=== PATIENT | male | born 1970 | race Caucasian/White ===

== ENCOUNTER → 2020-08-18 14:26 | Outpatient (BNVA) | payer BC, SELFPAY | PROVIDERS: Family Provider Nurse Practitioner Family; Visit Provider Nurse Practitioner Family | DX: Z20.828 Contact with and (suspected) exposure to other viral communicable diseases (principal); J06.9 Acute upper respiratory infection, unspecified; R43.0 Anosmia | CPT/HCPCS: 87635 ==

== ENCOUNTER 2020-08-20 11:51 | Outpatient (CLI) | payer BC, SELFPAY ==
--- NOTE | 2020-08-20 11:47 | A.OFFVIS_ITS ---
Patient Information Referred by: Aisha Symptom onset date: 08/11/20 COVID 19 common symptoms: positive fever(s), chills, cough, fatigue and body aches COVID 19 other sytmptoms: negative chest pressure, chest pain, pleuritic pain, requiring oxygen, requiring more oxygen, respiratory distress or other concerning symptoms Severity: moderate Treatment prior to arrival: none [facility] COVID test results: Nasal/Oral Coronavirus 2019 PCR Detected H 08/18/20 14:26 08/18/20 Criteria/Plan Inclusion/Exclusion Criteria weight >/= 40kg, + direct test </= 10 days ago and symptom onset </= 10 days ago BMI >/= 35 not requiring hospitalization, not requiring oxygen (if not chronically on oxygen) and no increase oxygen requirement (if chronically on oxygen) Patient education patient/caregiver received/reviewed fact sheet, Emergency Use Authori zation/unapproved drug status discussed with patient/caregiver, alternatives to this treatment discussed with patient/caregiver, risks and benefits of medication reviewed with patient/caregiver, patient/caregiver given opportunity for questions, which were answered and patient/caregiver consents to receiving Monoclonal Antibody Treatment Plan for treatment Meets criteria for Monoclonal Antibody infusion Ordering Monoclonal Antibody infusion for today
[2020-08-20 11:53] VITALS: BMI 49.5
[2020-08-20 12:00] VITALS: BMI 49.5
[2020-08-20 12:17] VITALS: BP 154/99; PULSE 103; RESP 18; TEMP 37.6; O2SAT 97
[2020-08-20 12:37] VITALS: BP 123/88; PULSE 85; RESP 16; TEMP 37.7; O2SAT 95
[2020-08-20 12:55] VITALS: BP 130/88; PULSE 81; RESP 17; TEMP 37.7; O2SAT 96
[2020-08-20 14:31] VITALS: BP 150/94; PULSE 87; RESP 17; TEMP 37.6; O2SAT 95
--- NOTE | 2020-08-25 15:33 | DCPLANNER ---
Addendum entered by Manda Espinoza 09/01/20 15:42: government program manager called to check on patient 10 days after getting the infusion. Patient stated that he was doing good, stated that he was really tired today. Patient stated that he has not been admitted to the hospital. Addendum entered by Manda Espinoza 08/27/20 15:49: government program manager called to check on patient after receiving the BAM infusion. Patient stated that he is a lot better, just feels like he has a cold. Patient is still a little short of breath, but other than that is feeling great. Original Note: government program manager had message that patient received the BAM infusion. government program manager called to check on patient after receiving the infusion. Patient stated that he tolorated the infusion just fine. Before the infusion he stated that he did not have a cough. He did have a headache, chills, low grade fever, he was real tired. That after the infusion he stated that he is getting his taste and smell back, he stated that after the first 24 hours he could not tell a difference, but then after 48 hours he is feeling much better. He stated that he does not have bocy chils, no headaches, and no fever. Patient stated that if he needed a followup appointment that he would make it.
== END 2020-08-20 14:25 | disposition home or self-care (01) ==
LOC: OPS 11:51
PROVIDERS: PCP Nurse Practitioner Family; Visit Provider Nurse Practitioner Family
DX: U07.1 COVID-19 (principal)
CPT/HCPCS: 96365; J7050

== ENCOUNTER 2022-09-08 16:31 | Emergency (ER) | payer BC, SELFPAY ==
[2022-09-08] VITALS (7 sets, daily range): BP systolic 147–157; BP diastolic 97–105; PULSE 68–77; RESP 16–24; TEMP 36.8; O2SAT 90–97
--- NOTE | 2022-09-08 16:45 | ECG_ITS ---
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 Measurements Intervals [place] Rate: 78 P: 42 [place]: 148 QRS: 46 QRSD: 101 T: 65 QT: 356 QTc: 406 Interpretive Statements SINUS RHYTHM No previous ECG available for comparison Electronically Signed On 09-08-2022 17:28:19 GERIATRIC NURSING ASSISTANT by Uli Kim M.D. [id number]
--- NOTE | 2022-09-08 16:53 | ED_ITS ---
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 He reports over the past few weeks noticing increased swelling left greater than right which has been evaluated by PCP. He had a negative ultrasound however has been more fatigued and short of breath. Additionally he notes some chest pressure in the middle of his chest associated with shortness of breath and lightheadedness earlier today. Density symptoms is moderate. Course has persisted. No other specific changes in health, exacerbating, or alleviating factors identified. Pertinent past history: other Onset (ago): week(s) Timing of current episode: increasing Pain location: substernal and other Severity: moderate Quality: tightness, heaviness and sharp Relieving factors: nothing Exacerbating factors: movement Associated symptoms: Reports leg edema Review of Systems General: Reports: 10 or more systems reviewed and unremarkable except in HPI and below PFSH ED PFSH: Medical History Essential hypertension History of blood clots Family History Denies family history of Anesthesia complication Bleeding disorder Social History Smoking and tobacco status: never smoked Alcohol intake: never Physical Exam Const: COMMON NORMALS: alert GENERAL APPEARANCE: cooperative and well developed HENMT: COMMON NORMALS: normocephalic and atraumatic HEAD & SCALP: normocephalic and atraumatic Eye: COMMON NORMALS: conjunctivae normal CONJUNCTIVA: Yes conjunctivae normal SCLERA: sclerae normal Neck/C-Spine: COMMON NORMALS: supple GENERAL: Yes trachea midline Resp: COMMON NORMALS: clear to auscultation bilaterally EFFORT & INSPECTION : Yes able to speak in complete sentences AUSCULTATION: clear to auscultation bilaterally Cardio: COMMON NORMALS: regular rate and regular rhythm RATE: regular rate RHYTHM: regular rhythm GI: COMMON NORMALS: Soft to palpation PALPATION: Yes Soft to palpation and No Tenderness to palpation present (GI) Extremity: GENERAL: Yes normal exam except as noted and Yes edema Neuro: COMMON NORMALS: moves all extremities SENSORIUM/ORIENTATION: Yes alert and No Orientation impaired Psych: COMMON NORMALS: mental status grossly normal and Normal thought process present THOUGHT PROCESS: Normal thought process present Course Vital Signs: Vital signs: Vital Signs Temperature 98.2 F 09/08/22 16:40 Pulse Rate 76 09/08/22 21:19 Respiratory Rate 20 H 09/08/22 21:19 Blood Pressure 151/104 09/08/22 20:48 Pulse Oximetry 95 09/08/22 21:19 Oxygen Delivery Me thod 09/08/22 19:26 MDM - Chest Pain Medical Decision Making 52-year-old gentleman presenting to the emergency department for leg swelling and chest discomfort. Patient does have history of DVT however no leg tenderness palpation and mild trace edema appears symmetric without overlying skin changes. Exam as above. Patient is nontoxic in appearance. EKG notable for sinus rhythm, normal axis and intervals, no STEMI. Labs notable for minimal leukocytosis, normal hemoglobin. Metabolic panel without acute derangement. Negative range 2-hour delta troponin. Given clinical history of reported DVT as well as description of symptoms D-dimer is appropriate and was elevated. Chest x-ray with no lobar consolidation or pneumothorax. CTA negative for pulmonary embolism. Most likely etiology of patient's symptoms is unspecified chest pain. He is low risk by heart score and can be referred for outpatient management. Plan to have further outpatient evaluation and follow-up. The results of ED evaluation were discussed with the patient including prescriptions and/or symptomatic cares (if applicable) including appropriate and responsible use, followup plan, and return precautions. The patient verbalized understanding and felt safe for discharge. Medical Records I reviewed the patient's medical records. Lab Data I reviewed the patient's lab results. 09/08/22 17:15 09/08/22 17:15 Radiology Impressions Chest X-Ray 09/08/22 17:03 IMPRESSION: No acute findings. Chest CTA 09/08/22 18:54 IMPRESSION: Negative for pulmonary embolism. Minor curvilinear atelectasis or scarring at the lingula. Otherwise, no acute findings. Laboratory Results WBC 11.1 10^3/uL (4.0-10.0) H 09/08/22 17:15 RBC 5.14 10^6/uL (4.1-5.3) 09/08/22 17:15 Hgb 15.1 g/dL (11.7-16.6) 09/08/22 17:15 Hct 46.1 % (42.0-52.0) 09/08/22 17:15 MCV 89.7 fl (80-94) 09/08/22 17:15 MCH 29.4 pg (28.0-34.0) 09/08/22 17:15 MCHC 32.8 g/dL (30.0-36.0) 09/08/22 17:15 RDW 13.5 % (12.1-15.1) 09/08/22 17:15 Plt Count 264 10^3/cmm (130-400) 09/08/22 17:15 MPV 10.0 fL (7.4-10.4) 09/08/22 17:15 Neut % (Auto) 59.6 % 09/08/22 17:15 Lymph % (Auto) 26.3 % 09/08/22 17:15 [place] % (Auto) 10.8 % 09/08/22 17:15 Eos % (Auto) 2.4 % 09/08/22 17:15 Baso % (Auto) 0.4 % 09/08/22 17:15 Neut # (Auto) 6.59 10^3/uL (1.8-7.7) 09/08/22 17:15 Lymph # (Auto) 2.9 10^3/uL (0.8-4.8) 09/08/22 17:15 [place] # (Auto) 1.2 10^3/uL (0.2-0.9) H 09/08/22 17:15 Eos # (Auto) 0.3 10^3/uL (0.0-0.8) 09/08/22 17:15 Baso # (Auto) 0.0 10^3/uL (0.0-0.1) 09/08/22 17:15 Nucleated RBC % (auto) 0 % 09/08/22 17:15 Nucleated RBCs # 0.0 /100WBC 09/08/22 17:15 D-Dimer 0.60 ug/mIFEU (0-0.59) H 09/08/22 17:15 Sodium 137 mmol/L (136-145) 09/08/22 17:15 Potassium 4.1 mmol/L (3.5-5.1) 09/08/22 17:15 Chloride 102 mmol/L (98-107) 09/08/22 17:15 Carbon Dioxide 28 mmol/L (22-29) 09/08/22 17:15 Anion Gap 11.1 (5-19) 09/08/22 17:15 BUN 16 mg/dL (6-20) 09/08/22 17:15 Creatinine 1.1 mg/dL (0.7-1.2) 09/08/22 17:15 GFR Calculation 70.9 mL/min (90-130) L 09/08/22 17:15 Glucose 112 mg/dL (65-115) 09/08/22 17:15 Calculated Osmolality 286 mOsm/kg (285-295) 09/08/22 17:15 Calcium 9.5 mg/dL (8.5-10.5) 09/08/22 17:15 Total Bilirubin 0.2 mg/dL (0.15-1.2) 09/08/22 17:15 AST 16 U/L (0-40) 09/08/22 17:15 ALT 34 U/L (0-41) 09/08/22 17:15 Alkaline Phosphatase 100 U/L (40-130) 09/08/22 17:15 Troponin T Baseline 8 ng/L (0-15) 09/08/22 17:15 Troponin T 120 Minute 7.84 ng/L (0-15) 09/08/22 18:47 Delta Troponin T -0.16 ABS# (0-10) L 09/08/22 18:47 NT-Pro-B Natriuret Pep 5 pg/mL (0-125) 09/08/22 17:15 Total Protein 7.0 g/dL (6.6-8.7) 09/08/22 17:15 Albumin 3.9 g/dL (3.5-5.2) 09/08/22 17:15 Globulin 3.1 g/dL (1.3-4.6) 09/08/22 17:15 Lipase 20 U/L (13-60) 09/08/22 17:15 Discharge Plan Discharge Patient Disposition: Home Clinical Impression: Chest pain Condition: Stable Prescriptions: No Action lisinopril 10 mg tablet 10 mg PO DAILY Discharge Orders: Discharge ED (Routine); Ordered 09/08/22 Ordered By: Warren Lau Referrals: Tierra Mccauley APRN [Primary Care Provider] - Discharge Diet: Usual diet Discharge Activity: Increase activity as tolerated Patient Instructions: Chest Pain (ED), Leg Edema (ED) Activity Restrictions/Additional Instructions: Thank you for visiting the emergency department. You were seen and evaluated for chest pain and associated symptoms. The exact cause of your symptoms is unclear however as discussed based on risk stratification does not appear to need hospitalization at this time. Please continue outpatient evaluation and follow-up with your primary care monae beck. I will message case management for outpatient cardiac stress testing. Return to the emergency department for worsening or uncontrolled symptoms or anything else that you are concerned about and feel needs emergency department evaluation Coding Level of Care Code ED Zoning Administrator for Berto Herron
--- NOTE | 2022-09-08 17:03 | XRR_ITS ---
PROCEDURE INFORMATION: Exam: XR Chest Exam date and time: 09/08/2022 5:15 PM Age: 52 years old Clinical indication: Pain; Left-sided; Additional info: Cp TECHNIQUE: Imaging protocol: Radiologic exam of the chest. Views: 1 view. COMPARISON: CR XR abdomen min 2V [id number] 01/01/2018 7:43 AM FINDINGS: Lungs: Unremarkable. No consolidation. Pleural spaces: Unremarkable. No pleural effusion. No pneumothorax. Heart/Mediastinum: Unremarkable. No cardiomegaly. Bones/joints: Unremarkable. XR/XR chest 1V portable [id number] IMPRESSION: No acute findings.
[2022-09-08] MEDS: aspirin 81 mg Chew Tablet 324 MG PO (17:28)
--- NOTE | 2022-09-08 17:30 | PC.NURSE ---
Patient dropped one tablet.
[2022-09-08 17:36] LABS: Basophils % 0.4 %; Eosinophils # 0.3 10^3/uL (0.0-0.8); Eosinophils % 2.4 %; Hematocrit 46.1 % (42.0-52.0); Hemoglobin 15.1 g/dL (11.7-16.6); Lymphocytes # 2.9 10^3/uL (0.8-4.8); Lymphocytes % 26.3 %; Mean Corpuscular HGB Conc 32.8 g/dL (30.0-36.0); Mean Corpuscular Hemoglobin 29.4 pg (28.0-34.0); Mean Corpuscular Volume 89.7 fl (80-94); Monocytes # 1.2 10^3/uL (0.2-0.9); Monocytes % 10.8 %; Neutrophils # 6.59 10^3/uL (1.8-7.7); Neutrophils % 59.6 %; Nucleated Red Blood Cells % 0 %; Platelet Count 264 10^3/cmm (130-400); Red Blood Count 5.14 10^6/uL (4.1-5.3); Red Cell Distribution Width 13.5 % (12.1-15.1); White Blood Count 11.1 10^3/uL (4.0-10.0)
[2022-09-08] MEDS: aspirin 81 mg Chew Tablet PO (17:36)
[2022-09-08 18:10] LABS: Troponin(5th) Baseline 8 ng/L (0-15)
[2022-09-08 18:19] LABS: Alanine Aminotransferase 34 U/L (0-41); Albumin Level 3.9 g/dL (3.5-5.2); Alkaline Phosphatase 100 U/L (40-130); Anion Gap 11.1 (5-19); Aspartate Amino Transferase 16 U/L (0-40); Blood Urea Nitrogen 16 mg/dL (6-20); Calcium 9.5 mg/dL (8.5-10.5); Carbon Dioxide 28 mmol/L (22-29); Chloride 102 mmol/L (98-107); Globulin 3.1 g/dL (1.3-4.6); Glomerular Filtration Rate 70.9 mL/min (90-130); Glucose 112 mg/dL (65-115); Lipase 20 U/L (13-60); NT Pro B Type Natriuretic Pept 5 pg/mL (0-125); Osmolality Calculated 286 mOsm/kg (285-295); Potassium 4.1 mmol/L (3.5-5.1); Sodium 137 mmol/L (136-145); Total Bilirubin 0.2 mg/dL (0.15-1.2)
--- NOTE | 2022-09-08 18:54 | CTR_ITS ---
PROCEDURE INFORMATION: Exam: CTA Chest With Contrast Exam date and time: 09/08/2022 8:18 PM Age: 52 years old Clinical indication: Pain; Chest pressure; Additional info: Cp, SOB, HX dvt, elevated ddimer TECHNIQUE: Imaging protocol: Computed tomographic angiography of the chest with contrast. 3D rendering (Not supervised by radiologist): MIP and/or 3D reconstructed images were created by the technologist. Radiation optimization: All CT scans at this facility use at least one of these dose optimization techniques: automated exposure control; mA and/or kV adjustment per patient size (includes targeted exams where dose is matched to clinical indication); or iterative reconstruction. Contrast material: OMNIPAQUE 350; Contrast volume: 95 ml; Contrast route: INTRAVENOUS (IV); COMPARISON: CR (CHEST, ) 09/08/2022 5:15 PM RADIATION DOSE METRICS: Total DLP (mGy-cm): 2565.94 FINDINGS: Pulmonary arteries: Normal. No pulmonary emboli. Aorta: No aortic aneurysm. No aortic dissection. Lungs: Minor curvilinear atelectasis or scarring at the lingula. Partially calcified granuloma noted in the left lower lobe. No consolidation. No masses. Pleural spaces: No pneumothorax. No pleural effusion. Heart: No cardiomegaly. No pericardial effusion. Lymph nodes: No enlarged lymph nodes. Bones/joints: No acute fracture. Soft tissues: Unremarkable. CT/CT angio chest PE protcl [id number] IMPRESSION: Negative for pulmonary embolism. Minor curvilinear atelectasis or scarring at the lingula. Otherwise, no acute findings.
--- NOTE | 2022-09-08 19:01 | ECG_ITS ---
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 Measurements Intervals [place] Rate: 72 P: 50 [place]: 151 QRS: 48 QRSD: 99 T: 60 QT: 369 QTc: 404 Interpretive Statements SINUS RHYTHM WITH OCCASIONAL VENTRICULAR PREMATURE COMPLEXES Compared to ECG 09/08/2022 16:45:06 Ventricular premature complex(es) now present Electronically Signed On 09-09-2022 14:43:28 COMPLIANCE VICE PRESIDENT by Uli Kim M.D. [id number]
--- NOTE | 2022-09-08 19:29 | PC.NURSE ---
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 NAD noted. will continue to monitor.
--- NOTE | 2022-09-08 19:58 | PC.NURSE ---
1950 - patient transported to CT via wheelchair with motion study technician.
[2022-09-08 20:04] LABS: Troponin 5 2HR 7.84 ng/L (0-15)
[2022-09-08] MEDS: iohexol 350 mg/mL 500 mL Btl (per mL) IV (20:39)
--- NOTE | 2022-09-08 20:49 | PC.NURSE ---
patient sitting in chair due to being uncomfortable in stretcher. NAD distress noted.
[2022-09-08 21:18] LABS: Troponin 5 2HR Delta -0.16 ABS# (0-10)
== END 2022-09-08 21:20 | disposition home or self-care (01) ==
PROVIDERS: Emergency Provider Emergency Medicine; PCP Nurse Practitioner Family
DX: R07.9 Chest pain, unspecified (principal); I10 Essential (primary) hypertension
CPT/HCPCS: 71045; 71275; 80053; 83690; 83880; 84484; 85025; 85378; 93005; 99285; Q9967

== ENCOUNTER 2024-07-22 13:39 | Inpatient (IN) | payer BC, SELFPAY ==
[2024-07-22] VITALS (27 sets, daily range): BP systolic 104–138; BP diastolic 70–104; PULSE 59–102; RESP 9–28; TEMP 36.4–36.6; O2SAT 91–99; BMI 44.4
--- NOTE | 2024-07-22 13:42 | XRR_ITS ---
PROCEDURE INFORMATION: Exam: XR Chest Exam date and time: 07/22/2024 2:07 PM Age: 54 years old Clinical indication: Pain; Angina pectoris; Additional info: Cp TECHNIQUE: Imaging protocol: Radiologic exam of the chest. Views: 1 view. COMPARISON: CT angio chest PE protcl [id number] 09/08/2022 8:18 PM FINDINGS: Lungs: Unremarkable. No consolidation. Pleural spaces: Unremarkable. No pleural effusion. No pneumothorax. Heart/Mediastinum: Unremarkable. No cardiomegaly. Bones/joints: Unremarkable. XR/XR chest 1V portable [id number] IMPRESSION: No acute findings.
--- NOTE | 2024-07-22 13:55 | ECG_ITS ---
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 Measurements Intervals [place] Rate: 55 P: 44 [place]: 175 QRS: 31 QRSD: 95 T: 65 QT: 384 QTc: 370 Interpretive Statements SINUS BRADYCARDIA SEPTAL MYOCARDIAL INFARCTION , OF INDETERMINATE AGE [40+ ms Q WAVE IN V1/V2] Compared to ECG 09/08/2022 19:01:40 Myocardial infarct finding now present Sinus rhythm no longer present Ventricular premature complex(es) no longer present Electronically Signed On 07-23-2024 21:38:07 WORKS MANAGER by Uli Kim M.D. [id number]
--- NOTE | 2024-07-22 14:01 | ED_ITS ---
HPI - Chest Pain 2 General: Chief Complaint: Chest Pain Stated Complaint: CP Time Seen by Provider: 07/22/24 13:50 Source: patient Mode of arrival: ambulatory Limitations: no limitations History of Present Illness: 54-year-old male states he had had a hea rt attack little over a week ago did have stents placed he states it [place] states that he had eaten this morning started having some epigastric pain and states that he has been burping as well he states that since belching his pains improving he denies any fever denies any dyspnea denies any vomiting or diarrhea Associated symptoms: Reports abdominal pain; Deny dyspnea, fever(s), nausea or vomiting Related Data Home Medications Medication Instructions Recorded Confirmed lisinopril 10 mg tablet 10 mg PO DAILY 08/18/20 07/22/24 aspirin 81 mg tablet,delayed 81 mg PO DAILY 07/22/24 07/22/24 release bupropion HCl 150 mg 24 hr tablet, 150 mg PO DAILY 07/22/24 07/22/24 extended release buspirone 5 mg tablet 5 mg PO BID 07/22/24 07/22/24 carvedilol 6.25 mg tablet 6.25 mg PO BID 07/22/24 07/22/24 clopidogrel 75 mg tablet 75 mg PO DAILY 07/22/24 07/22/24 famotidine 20 mg tablet 20 mg PO BID 07/22/24 07/22/24 furosemide 20 mg tablet 20 mg PO DAILY 07/22/24 07/22/24 losartan 50 mg tablet 50 mg PO DAILY 07/22/24 07/22/24 meloxicam 15 mg tablet 15 mg PO DAILY 07/22/24 07/22/24 rosuvastatin 40 mg tablet 70 mg PO DAILY 07/22/24 07/22/24 semaglutide 0.25 mg or 0.5 mg (2 See Rx Instructions .Route .COMPLEX 07/22/24 07/22/24 mg/1.5 mL) subcutaneous pen injector sertraline 50 mg tablet 50 mg PO DAILY 07/22/24 07/22/24 trazodone 50 mg tablet 50 mg PO BEDTIME PRN Insomnia 07/22/24 07/22/24 Allergies Allergy/AdvReac Type Severity Reaction Status Date / Time No Known Allergies Allergy Verified 09/08/22 16:48 Review of Systems 2 Const: Denies: fever(s), chills, body aches or change in appetite ENMT: Denies: throat pain or dental pain Card: Reports: chest pain Resp: Denies: dyspnea GI: Reports: abdominal pain; Denies: nausea, vomiting or diarrhea Musc: Denies: neck pain or back pain Skin/Breast: Denies: rash Neuro: Denies: headache(s) PFSH ED 2 PFSH: Medical History History of blood clots Essential hypertension Family History Denies family history of Anesthesia complication Bleeding disorder Social History Smoking and tobacco/nicotine status: never used tobacco/nicotine Alcohol intake: never Physical Exam 2 Const: COMMON NORMALS: no acute distress, patient oriented x3 and healthy appearing HENMT: COMMON NORMALS: normocephalic and atraumatic HEAD & SCALP: n ormocephalic and atraumatic Eye: COMMON NORMALS: conjunctivae normal CONJUNCTIVA: Yes conjunctivae normal Neck/C-Spine: COMMON NORMALS: full ROM and supple Chest: COMMONS NORMALS: normal inspection of the chest Resp: COMMON NORMALS: normal respiratory effort, No retractions, No use of accessory muscles and clear to auscultation bilaterally AUSCULTATION: clear to auscultation bilaterally Cardio: COMMON NORMALS: regular rhythm and No murmurs present (Cardio) R ATE: bradycardic RHYTHM: regular rhythm GI: COMMON NORMALS: Normal to inspection, nondistended, normoactive bowel sounds present, Soft to palpation, non-tender and no masses PALPATION: Yes Soft to palpation Extremity: COMMON NORMALS: normal to inspection and full ROM Neuro: COMMON NORMALS: patient oriented x3, moves all extremities and no focal motor deficits Psych: COMMON NORMALS: mental status grossly normal, Normal thought process present and cooperative THOUGHT PROCESS: Normal thought process present Skin: COMMON NORMALS: no rashes or lesions noted and no wounds GENERAL SKIN EXAM: no rashes or lesions noted Course 2 Reevaluation(s): Reevaluation #1: Patient started having chest pain nurse alerted me that he stated his pain was now 5 out of 10 due to repeat EKG that now is showing ST elevation I spoke to putty glazer STEMI alert was called off second EKG Time: 15:36 Vital Signs: Vital signs: Vital Signs Temperature 97.6 F 07/22/24 13:58 Pulse Rate 67 07/22/24 16:02 Respiratory Rate 14 07/22/24 16:02 Blood Pressure 128/78 07/22/24 16:02 Pulse Oximetry 98 07/22/24 16:02 Oxygen Delivery Me thod Room Air 07/22/24 16:02 MDM - Chest Pain Medical Decision Making Patient presents here with chest pain second EKG showed ST elevation I spoke to [facility]ty [facility]azer who is taking patient to the [facility] at this time initial EKG showed no ST elevation he said no shortness of breath here or headache. Medical Records I reviewed the patient's medical records. Lab Data I reviewed the patient's lab results. 07/22/24 12:15 07/22/24 14:05 Radiology Impressions Chest X-Ray 07/22/24 13:42 IMPRESSION: No acute findings. Laboratory Results WBC 12.97 10^3/uL (3.29-11.43) H 07/22/24 12:15 RBC 5.26 10^6/uL (3.85-5.65) 07/22/24 12:15 Hgb 16.10 g/dL (11.27-16.99) 07/22/24 12:15 Hct 48.5 % (37-53) 07/22/24 12:15 MCV 92.2 fl (82-101) 07/22/24 12:15 MCH 30.6 pg (27-33) 07/22/24 12:15 MCHC 33.2 g/dL (30-55) 07/22/24 12:15 RDW 13.1 % (12.1-15.1) 07/22/24 12:15 Plt Count 290 10^3/cmm (157-399) 07/22/24 12:15 MPV 9.9 fL (7.4-10.4) 07/22/24 12:15 Neut % (Auto) 64.3 % 07/22/24 12:15 Lymph % (Auto) 25.5 % 07/22/24 12:15 [place] % (Auto) 7.4 % 07/22/24 12:15 Eos % (Auto) 1.8 % 07/22/24 12:15 Baso % (Auto) 0.5 % 07/22/24 12:15 Neut # (Auto) 8.34 10^3/uL (1.8-7.7) H 07/22/24 12:15 Lymph # (Auto) 3.3 10^3/uL (0.8-4.8) 07/22/24 12:15 [place] # (Auto) 1.0 10^3/uL (0.2-0.9) H 07/22/24 12:15 Eos # (Auto) 0.2 10^3/uL (0.0-0.8) 07/22/24 12:15 Baso # (Auto) 0.1 10^3/uL (0.0-0.1) 07/22/24 12:15 Nucleated RBC % (auto) 0 % 07/22/24 12:15 Nucleated RBCs # 0.0 /100WBC 07/22/24 12:15 PT 12.90 SECONDS (12.1-14.9) 07/22/24 14:05 INR 0.95 (0.8-1.2) 07/22/24 14:05 Sodium 140 mmol/L (136-145) 07/22/24 14:05 Potassium 4.8 mmol/L (3.5-5.1) 07/22/24 14:05 Chloride 101 mmol/L (98-107) 07/22/24 14:05 Carbon Dioxide 26 mmol/L (22-29) 07/22/24 14:05 Anion Gap 17.8 (5-19) 07/22/24 14:05 BUN 17 mg/dL (6-20) 07/22/24 14:05 Creatinine 0.9 mg/dL (0.7-1.2) 07/22/24 14:05 GFR Calculation 88.6 mL/min (90-130) L 07/22/24 14:05 Glucose 137 mg/dL (65-115) H 07/22/24 14:05 Calculated Osmolality 294 mOsm/kg (285-295) 07/22/24 14:05 Calcium 9.7 mg/dL (8.5-10.5) 07/22/24 14:05 Total Bilirubin 0.5 mg/dL (0.15-1.2) 07/22/24 14:05 AST 14 U/L (0-40) 07/22/24 14:05 ALT 34 U/L (0-41) 07/22/24 14:05 Alkaline Phosphatase 102 U/L (40-130) 07/22/24 14:05 Troponin T Baseline 9 ng/L (0-15) 07/22/24 14:05 Total Protein 7.1 g/dL (6.6-8.7) 07/22/24 14:05 Albumin 4.7 g/dL (3.5-5.2) 07/22/24 14:05 Globulin 2.4 g/dL (1.3-4.6) 07/22/24 14:05 Lipase 27 U/L (13-60) 07/22/24 14:05 All radiology interpretation(s) finalized by discharge EKG Data EKG 1: I personally reviewed and interpreted this EKG as follows: EKG interpretation date: 07/22/24 EKG interpretation time: 13:55 Interpretation: sinus devin hr [address] elevation qrs 95 qtc 374 EKG 2: I personally reviewed and interpreted this EKG as follows: EKG interpretation date: 07/22/24 EKG interpretation time: 15:36 Interpretation: sinus devin st elevation v1 with reciprocal depression Critical Care Time 2 Critical Care Time: Critical Care Time: Yes Total Critical Care Time: 45 Attestation: The high probability of a clinically significant, sudden or life threatening deterioration of the patient's cv system(s) required my full and direct attention, intervention and personal management. The critical care time is as shown. This time is in addition to time spent performing any reported procedures but includes the following: [x] Data and vital sign review and interpretation [x] Patient assessment, examination and intervention [x] Documentation [x] Medication orders and management Discharge Plan Discharge Patient Disposition: Admitted As Inpatient Clinical Impression: ST elevation AK (STEMI) Condition: Stable Prescriptions: No Action lisinopril 10 mg tablet 10 mg PO DAILY losartan 50 mg tablet 50 mg PO DAILY buspirone 5 mg tablet 5 mg PO BID carvedilol 6.25 mg tablet 6.25 mg PO BID trazodone 50 mg tablet 50 mg PO BEDTIME PRN (Reason: Insomnia) meloxicam 15 mg tablet 15 mg PO DAILY clopidogrel 75 mg tablet 75 mg PO DAILY aspirin 81 mg tablet,delayed release (DR/EC) 81 mg PO DAILY famotidine 20 mg tablet 20 mg PO BID sertraline 50 mg tablet 50 mg PO DAILY rosuvastatin 40 mg tablet 70 mg PO DAILY bupropion HCl 150 mg tablet extended release 24 hr 150 mg PO DAILY furosemide 20 mg tablet 20 mg PO DAILY semaglutide 0.25 mg or 0.5 mg(2 mg/1.5 mL) Pen Injector See Rx Instructions .ROUTE .COMPLEX Rx Instructions: Inject 96 units on syringe by subcutaneous injection every 7 days. 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
[2024-07-22] MEDS: lidocaine 2% viscous 15 ML, aluminum-mag hydrox-simethicon 30 ML, sucralfate oral liq 1 GM PO ×2 (14:19→23:36)
[2024-07-22 14:34] LABS: Basophils # 0.1 10^3/uL (0.0-0.1); Basophils % 0.5 %; Eosinophils # 0.2 10^3/uL (0.0-0.8); Eosinophils % 1.8 %; Hematocrit 48.5 % (37-53); Lymphocytes # 3.3 10^3/uL (0.8-4.8); Lymphocytes % 25.5 %; Mean Corpuscular HGB Conc 33.2 g/dL (30-55); Mean Corpuscular Hemoglobin 30.6 pg (27-33); Mean Corpuscular Volume 92.2 fl (82-101); Mean Platelet Volume 9.9 fL (7.4-10.4); Monocytes % 7.4 %; Neutrophils # 8.34 10^3/uL (1.8-7.7); Neutrophils % 64.3 %; Nucleated Red Blood Cells % 0 %; Platelet Count 290 10^3/cmm (157-399); Red Blood Count 5.26 10^6/uL (3.85-5.65); Red Cell Distribution Width 13.1 % (12.1-15.1); White Blood Count 12.97 10^3/uL (3.29-11.43)
[2024-07-22 14:50] LABS: INR 0.95 (0.8-1.2)
[2024-07-22 14:55] LABS: Alanine Aminotransferase 34 U/L (0-41); Albumin Level 4.7 g/dL (3.5-5.2); Alkaline Phosphatase 102 U/L (40-130); Anion Gap 17.8 (5-19); Aspartate Amino Transferase 14 U/L (0-40); Blood Urea Nitrogen 17 mg/dL (6-20); Calcium 9.7 mg/dL (8.5-10.5); Carbon Dioxide 26 mmol/L (22-29); Chloride 101 mmol/L (98-107); Globulin 2.4 g/dL (1.3-4.6); Glomerular Filtration Rate 88.6 mL/min (90-130); Glucose 137 mg/dL (65-115); Lipase 27 U/L (13-60); Osmolality Calculated 294 mOsm/kg (285-295); Potassium 4.8 mmol/L (3.5-5.1); Sodium 140 mmol/L (136-145); Total Bilirubin 0.5 mg/dL (0.15-1.2); Total Protein 7.1 g/dL (6.6-8.7)
--- NOTE | 2024-07-22 14:55 | PC.PHAR ---
Pt has 3 new orders not started yet. Blood thinners on hold due to brain bleed. Brilinta 90mg and Metformin 500 were dc'd
[2024-07-22 14:56] LABS: Troponin(5th) Baseline 9 ng/L (0-15)
[2024-07-22] MEDS: ondansetron 2 mg/ML SDV 2 mL 4 MG IVP (15:22)
--- NOTE | 2024-07-22 15:36 | ECG_ITS ---
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 [email or web address]
[2024-07-22] MEDS: HYDROmorphone 1 mg/mL INJ 1 mL 0.5 MG IVP (15:43)
[2024-07-22] MEDS: aspirin 81 mg Chew Tablet 324 MG PO (15:43)
[2024-07-22] MEDS: clopidogrel 300 mg Tablet 600 MG PO (15:47)
[2024-07-22] MEDS: heparin 5,000 unit/mL INJ 1 mL 4000 UNIT IVP (15:48)
--- NOTE | 2024-07-22 15:49 | XACV_ITS ---
Exam Room: [facility] Ht: 183 cm Wt: 143 kg BSA: 2.76 m2 Gender: Male : 1970 Exam Priority: Routine Indication(s): - Acute anterior wall ME Procedure(s): Procedure Description: Diagnostic procedure Procedure Description: PCI procedure Procedure Description: Coronary IVUS Procedure Description: Drug Eluting Coronary Stent Procedure Description: PTCA Procedure Description: Coronary Thrombectomy Procedure Description: Miscellaneous Procedure Description: ACT Procedure Description: Coronary Angiography Diagnostic Cath Status: Emergency Diagnostic Findings * Ken Davis is a 54 year old male who has a complicated history with a recent intervention to LAD 2 weeks ago at an outside hospital please note that this is as per patient no record available to me, according to the patient course was complicated with intracranial bleed post left heart cath after 24 hours patient has excruciating headache thought to be sinus in origin, patient was discharged home when next day he started having double vision decided to come to the ER, CT scan confirmed intracranial bleed again no record available to me. He was transferred to neurosurgery care at [facility], in few days patient after close observation was discharged home advised to continue holding antiplatelet for next 2 more weeks, this morning patient started having chest pain off and on basis when it became more consistent he decided to come to the ER. Initial EKG was not suggestive of significant ST changes however the second EKG with chest pain was was consistent with anteroinferior ST depression suggestive of ischemia/injury. STEMI pager was activated because of ongoing chest pain and dynamic EKG changes. Patient was taken to the [facility], given history of recent intracranial bleed we kept ACT in between 250 and 300 mostly. He was noted to have 100% occluded mid left main. After somewhat difficulty we were able to cross into LAD, he was noted to have thrombotically occluded left side system including nondominant circumflex and large LAD/diagonal branch. Multiple balloon angioplasty followed by thrombectomy using Pronto and penumbra catheter was performed. IVUS confirmed high clot burden in proximal to distal segment at the same time there appeared to be ostial to proximal LAD small size perhaps underexpanded stent. It was treated with balloon angioplasty, despite of that patient vessel kept on occluding with thrombus burden, use of penumbra/balloon angioplasty followed by drug-eluting stent was performed in ostial to proximal LAD which finally restore the flow, it was treated with 3.5 x 15 mm drug-eluting stent postdilated with 4.0 x 12 mm noncompliant balloon at high inflation. Cardene was given intracoronary along with nitroglycerin, it finally restore the flow. Good angiographic result with LOYD-3 flow was noted in the LAD, we then tried to find circumflex which appeared to be small caliber nondominant vessel. RCA was a large-caliber dominant vessel without significant stenosis. Left ventricular end-diastolic pressure was 32 mmHg ejection fraction was 45%. Since patient has high thrombus burden we decided to treat him with low-dose IV heparin as cannot give 2B3A inhibitor. At this point patient would like to be transferred to [place] where neurosurgery can observe him for any head bleed since he had a bad experience after the previous cath because of intracranial hemorrhage. We have requested bed at [facility] and awaiting response. Currently patient appeared to be stable.Left heart catheterization#1 Left main is thrombotically occluded in the distal segment #2 LAD noted to have thrombotically occluded ostial segment with proximal stent without any flow #3 LCx small caliber nondominant vessel which is occluded #4 RCA is large caliber size and vessel which is dominant wraps around the apex does not have a significant stenosis or thrombus IVUS was performed: It was suggestive of small caliber perhaps underexpanded ostial stent with lots of thrombus burden in proximal to mid segment. PCI Status: Emergency PCI Indication: Immediate PCI for STEMI Interventional Findings * Successful PCI to distal left main into proximal LAD after multiple rounds of thrombectomy and balloon angioplasty for high thrombus burden.Please note that patient had a history of recent brain bleed for which she is not on dual antiplatelet therapy and would not like to get any anticoagulation except low-dose heparin, due to high thrombus burden with ACT in between 2 50-300, patient was loaded with Plavix.Successful PCI to distal left main into proximal LAD D. Lesion was prepared with multiple balloon angioplasties ranging from 2.5-3.0 compliant and noncompliant, please see inventory. Pronto catheter was used for thrombectomy however it remained unsuccessful therefore we decided to proceed with penumbra. Multiple rounds of penumbra was performed from left main into distal LAD. IVUS was performed which was suggestive of high-grade distal left main to ostial LAD stenosis at the same time the proximal stent was somewhat underexpanded and small caliber. It was treated with 3.0 noncompliant balloon at high inflation followed by 3.5 x 12 drug-elevated stent postdilated with 4.0 x 12 noncompliant balloon. Excellent angiographic result with LOYD-3 flow was restored.Nitroglycerin and Cardene was also given intracoronary. EKG improved patient became chest pain-free. He was transferred to the ICU in stable condition. Recommendations * 1-Return to i ICU for close monitoring and routine cath care 2-Risk factor modification for secondary prevention 3-Statin and aspirin 81 mg life-long, if tolerated 4-Patient was pre-loaded with 600 mg of Plavix, continue Plavix 75mg p.o. daily for at least one year. We will assess at the end of one year again to continue if further or not 5-Continue optimal medical management 6-Follow up with Dr. Mcginins in four weeks and your primary care in 10 days. Interventional RX Recommendation: PCI w/o planned CABG Diagnostic RX Recommendation: PCI w/o planned CABG Ventriculography Ejection Fraction: 45.0 % Pressures Phase:Rest AO : 94 / 74 ( 85 ) @ 12:49:34 PM 100 / 68 ( 82 ) @ 12:49:34 PM 130 / 85 ( 107 ) @ 12:49:34 PM 131 / 85 ( 107 ) @ 12:49:34 PM 92 / 71 ( 83 ) @ 4:40:00 PM 99 / 78 ( 90 ) @ 4:44:00 PM 103 / 81 ( 94 ) @ 4:48:00 PM 102 / 70 ( 86 ) @ 4:52:00 PM 86 / 55 ( 68 ) @ 5:23:00 PM 83 / 65 ( 75 ) @ 5:25:00 PM 90 / 66 ( 78 ) @ 5:30:00 PM 103 / 75 ( 90 ) @ 5:45:00 PM 95 / 77 ( 88 ) @ 5:48:00 PM LV : 144 / 12 / 32 @ 12:49:34 PM 141 / 12 / 30 @ 12:49:34 PM 141 / 12 / 31 @ 12:49:34 PM Valves Phase:DefaultPhase AV : 10.0 @ 6:49:34 PM AV Mean Gradient: 13.0 @ 6:49:34 PM Clinical Evaluation EBL: 75ml Procedural Details Pre-Procedure Time Out. Identified patient by full name and date of as verbalized by the patient/guarantor. Does the consent match the physician's order: N/A Emergent; Informed Consent not obtained due to time critical life threat. Accurate & Complete Informed Consent: N/A Emergent; Informed Consent not obtained due to time critical life threat. Inpatient/Outpatient History & Physical on Chart: N/A Emergent; Informed Consent not obtained due to time critical life threat. If H&P is completed, is and addenduem needed: N/A Emergent; Informed Consent not obtained due to time critical life threat; If yes, is the addendum complete: N/A. Visualize and Verify Site with Patient/Guarantor: N/A. Relevant Radiology Images available: N/A. The risks, benefits, and alternatives of sedation and/or procedure were discussed by physician. The patient agrees to continue. Procedure started. [facility] Clinical Fraility Score: 4: Vulnerable. [facility] Indications: ACS <= 24 hours. Chest Pain Symptom Assessment: Typical Angina Symptoms. Cardiovascular Instability: Yes, if yes, Persistant Ischemic Symptoms. Correct patient, site and procedure confirmed by cath team. Current diagnosis: STEMI. PERRLA. Strong, equal hand vice president of instruction bilaterally. Lungs clear x 5 lobes. IV Site on Arrival: 18 gauge in the right anticubital. IV Site on Arrival: Saline Lock. IV Fluids: 0.9% NaCl at KVO. 0 mL infused prior to outside laborer. Pre Procedural Pulses: right radial was 2+. Oxygen started at 2liters/min via nasal canula. right groin was prepped with chloroprep then draped in the usual sterile fashion. right radial was prepped with chloroprep then draped in the usual sterile fashion. Baseline sample Acquired. HR: 80 BPM. Physician notified. Baseline sample Acquired. HR: 79 BPM. Physician arrived. Physician scrubbed in. Immediate Pre-Procedure Time Out. Correct Patient: Yes; Correct Procedure: Yes; Correct Site: Yes; Correct Patient Position: Yes; Correct Supplies: Yes; Dried Flammable Prep: Yes; Blood Products Available: N/A;. Admit Source: Emergency department. Lidocaine 1% infiltrated to the right radial. Arterial access obtained. 6 austrian XB 3.5 guide catheter was inserted over the wire. ACT drawn. Results 161 seconds. Therapeutic limits - pre-heparin administration 90-150 seconds and monitoring heparin during a vascular procedure >250 seconds. Exchange wire in, guide repositioned. Exchange wire out. Exchange wire in, guide repositioned. Exchange wire out. Cine run performed of [facility]. Runthrough guidewire was advanced through the guide catheter to lesion in the LM/ostial LAD. Balloon inserted to lesion in the prox LAD. Inflation number : 1 A AB TREK 2.50X15 RX BALLOON was prepped and advanced across the Prox LAD , then inflated to 12 DORCAS for 0:19 seconds. Inflation number: 2 The AB TREK 2.50X15 RX BALLOON was reinflated across the Prox LAD, to 14 DORCAS for 0:16 seconds. Inflation number: 3 The AB TREK 2.50X15 RX BALLOON was reinflated across the Prox LAD, to 14 DORCAS for 0:13 seconds. Inflation number: 4 The AB TREK 2.50X15 RX BALLOON was reinflated across the Prox LAD, to 14 DORCAS for 0:09 seconds. Inflation number: 5 The AB TREK 2.50X15 RX BALLOON was reinflated across the Prox LAD, to 16 DORCAS for 0:15 seconds. Inflation number: 6 The AB TREK 2.50X15 RX BALLOON was reinflated across the Prox LAD, to 16 DORCAS for 0:17 seconds. Inflation number: 7 The AB TREK 2.50X15 RX BALLOON was reinflated across the Prox LAD, to 16 DORCAS for 0:07 seconds. Balloon out. Results checked. Pronto catheter inserted. ACT drawn. Results 353 seconds. Therapeutic limits - pre-heparin administration 90-150 seconds and monitoring heparin during a vascular procedure >250 seconds. Unable to cross Pronto catheter. Pronto catheter removed. 2nd Runthrough wire inserted and positioned in the distal LAD. 1st Runthrough wire removed. Pronto aspiration catheter inserted. Pneumbra Cat RX inserted to the Ostial LAD. Mechanical thrombectomy performed. Cat RX catheter removed. Inflation number : 8 A MDT NC EUPHORA RX 3.15V43QO BALLOON was prepped and advanced across the Prox LAD , then inflated to 12 DORCAS for 0:18 seconds. Inflation number: 9 The MDT NC EUPHORA RX 3.80G46ZW BALLOON was reinflated across the Prox LAD, to 12 DORCAS for 0:11 seconds. Inflation number: 10 The MDT NC EUPHORA RX 3.18O80DX BALLOON was reinflated across the Prox LAD, to 12 DORCAS for 0:12 seconds. Inflation number: 11 The MDT NC EUPHORA RX 3.24U25ZN BALLOON was reinflated across the Prox LAD, to 12 DORCAS for 0:13 seconds. Inflation number: 12 The MDT NC EUPHORA RX 3.18C81OJ BALLOON was reinflated across the Prox LAD, to 12 DORCAS for 0:13 seconds. Inflation number: 13 The MDT NC EUPHORA RX 3.29A51UG BALLOON was reinflated across the Prox LAD, to 12 DORCAS for 0:10 seconds. Balloon out. Unable to cross Pronto catheter. Pronto removed. Balloon inserted to lesion in the prox LAD. Results checked. IVUS catheter inserted. IVUS catheter out. Balloon inserted to lesion in the prox LAD. Inflation number : 14 A MDT NC EUPHORA RX 3.07W22SM BALLOON was prepped and advanced across the Prox LAD , then inflated to 16 DORCAS for 0:20 seconds. Inflation number: 15 The MDT NC EUPHORA RX 3.58J11OP BALLOON was reinflated across the Prox LAD, to 16 DORCAS for 0:13 seconds. IVUS run performed of LAD. Inflation number: 16 The MDT NC EUPHORA RX 3.36R14GV BALLOON was reinflated across the Prox LAD, to 18 DORCAS for 0:13 seconds. Balloon out. Results checked. Stent inserted to lesion in the LM. Inflation Number : 1 A MDT R EULOGIO 3.5X15 GEORGINA -Lot Number# [id number] Exp 01/24/2027 was prepped and advanced across the LMCA. The stent was deployed at 12 DORCAS for 0:17 seconds. Inflation number: 2 The stent balloon was then re-inflated across the LMCA to 12 DORCAS for 0:06 seconds. Stent balloon out over wire. Cat RX aspiration catheter in over the wire. ACT drawn. Results 189 seconds. Therapeutic limits - pre-heparin administration 90-150 seconds and monitoring heparin during a vascular procedure >250 seconds. Mechanical aspiration performed of LAD. Cat RX catheter removed. 300cm Runthrough wire inserted and positioned in the distal LAD. Short Runthrough wire removed. Teleport catheter inserted over the Runthrough wire. Runthrough wire out. 300cm Runthrough wire inserted. Teleport catheter removed. Cat RX catheter inserted into the L main/ostial LAD. Mechanical thrombectomy performed of LAD. Results checked. ACT drawn. Results 274 seconds. Therapeutic limits - pre-heparin administration 90-150 seconds and monitoring heparin during a vascular procedure >250 seconds. Inflation number : 1 A AB TREK 2.50X20 RX BALLOON was prepped and advanced across the Dist LAD , then inflated to 4 DORCAS for 0:20 seconds. Balloon inserted to lesion in the distal LAD. Inflation number: 2 The AB TREK 2.50X20 RX BALLOON was reinflated across the Dist LAD, to 8 DORCAS for 0:23 seconds. Inflation number: 3 The AB TREK 2.50X20 RX BALLOON was reinflated across the Dist LAD, to 12 DORCAS for 0:18 seconds. Inflation number: 4 The AB TREK 2.50X20 RX BALLOON was reinflated across the Dist LAD, to 8 DORCAS for 0:16 seconds. Inflation number: 5 The AB TREK 2.50X20 RX BALLOON was reinflated across the Dist LAD, to 12 DORCAS for 0:12 seconds. Inflation number: 6 The AB TREK 2.50X20 RX BALLOON was reinflated across the Dist LAD, to 12 DORCAS for 0:11 seconds. Inflation number: 7 The AB TREK 2.50X20 RX BALLOON was reinflated across the Dist LAD, to 12 DORCAS for 0:10 seconds. Inflation number: 17 The AB TREK 2.50X20 RX BALLOON was reinflated across the Prox LAD, to 12 DORCAS for 0:09 seconds. Inflation number: 18 The AB TREK 2.50X20 RX BALLOON was reinflated across the Prox LAD, to 14 DORCAS for 0:14 seconds. Inflation number: 19 The AB TREK 2.50X20 RX BALLOON was reinflated across the Prox LAD, to 14 DORCAS for 0:08 seconds. Inflation number: 20 The AB TREK 2.50X20 RX BALLOON was reinflated across the Prox LAD, to 14 DORCAS for 0:10 seconds. Balloon out. Balloon inserted to lesion in the prox LAD. Inflation number : 21 A MDT NC EUPHORA RX 4.33H62BW BALLOON was prepped and advanced across the Prox LAD , then inflated to 12 DORCAS for 0:17 seconds. Inflation number: 22 The MDT NC EUPHORA RX 4.41M71TH BALLOON was reinflated across the Prox LAD, to 14 DORCAS for 0:11 seconds. Inflation number: 3 The MDT NC EUPHORA RX 4.00S15KJ BALLOON was reinflated across the LMCA, to 16 DORCAS for 0:13 seconds. Inflation number: 4 The MDT NC EUPHORA RX 4.68S83BV BALLOON was reinflated across the LMCA, to 16 DORCAS for 0:10 seconds. Inflation number: 5 The MDT NC EUPHORA RX 4.27R23KJ BALLOON was reinflated across the LMCA, to 12 DORCAS for 0:09 seconds. Balloon out. Results checked. Guide catheter and wire out. A 5 austrian Riky catheter in over exchange wire. Multiple views taken of right coronary artery. Catheter redirected to the LCA. Catheter out. A 5 austrian Angled Pig catheter in over wire. Catheter advanced across the LV. EDP Sample taken: LV 144/12,32; HR: 80 BPM; SpO2: 97%. LV gram performed in WARREN @ 10 mL/second for a total of 20 mL. EDP Sample taken: LV 141/12,30; HR: 81 BPM; SpO2: 98%. Pullback taken: LV 141/12,31; AO 130/85(107); Mean: 13mmHg, Peak to Peak: 10mmHg, SEP: 16sec/min; HR: 81 BPM; SpO2: 97%. Catheter out. Physician scrubbed out. A TR Band was successful obtaining hemostatsis at the Right Radial artery insertion site. Post Procedure: Pulses reassessed and unchanged. PERRLA. Strong, equal hand vice president of instruction bilaterally. No VTE prophylaxis required. Medication's Wasted: Lidocaine 1% = 16 mL. Medication's Wasted: Nitro = 49.6 mg. Medication's Wasted: Other = Cardene 24.75 mg. Medication's Wasted: Other = Fentanyl 50 mcg. Medication's Wasted: Heparin = 4000 u. Total IV fluids: 120 mL. PCI Indication: STEMI. Post-op diagnosis: STEMI, Acute Thrombosis of prior LM/LAD stent. Complications: none. Estimated blood loss: 75ml. Responsiveness - Normal response to verbal stimuli; alert and oriented, PERRLA. Airway - Unaffected, no intervention required; spontaneous ventilation. Circulation: W/N/L, pulses unchanged. Nausea/Vomiting: No. Procedure completed. Patient transferred by bed to ICU. PCI Indication : Immediate PCI for STEMI. Vital chart was stopped. Access Site Site: Right Radial artery Sheath Size: 6 Fr Hemostasis Method: TR Band Hemostasis Success: Successful Procedure Medications Start: 4:25 PM Stop: 4:25 PM Medication: Versed Amount: 1 mg Route: I.V. Start: 4:26 PM Stop: 4:26 PM Medication: Fentanyl Amount: 50 mcg Start: 4:32 PM Stop: 4:32 PM Medication: Versed Amount: 1 mg Route: I.V. Start: 4:32 PM Stop: 4:32 PM Medication: Nitrogylcerin Amount: 200 mcg Route: I.A. Start: 4:38 PM Stop: 4:38 PM Medication: Heparin Amount: 5000 units Route: I.V. Start: 4:45 PM Stop: 4:45 PM Medication: Versed Amount: 1 mg Route: I.V. Start: 4:58 PM Stop: 4:58 PM Medication: Versed Amount: 1 mg Route: I.V. Start: 5:06 PM Stop: 5:06 PM Medication: Fentanyl Amount: 50 mcg Route: I.V. Start: 5:17 PM Stop: 5:17 PM Medication: Amiodarone (Cordarone) Amount: 150 mg Route: I.V. bolus Start: 5:22 PM Stop: 5:22 PM Medication: Nitrogylcerin Amount: 200 mcg Route: I.C. Start: 5:34 PM Stop: 5:34 PM Medication: Versed Amount: 1 mg Route: I.V. Start: 5:48 PM Stop: 5:48 PM Medication: Cardene Amount: 250 mcg Route: I.C. Start: 5:42 PM Stop: 5:42 PM Medication: Heparin Amount: 4000 units Route: I.V. Start: 5:54 PM Stop: 5:54 PM Medication: Fentanyl Amount: 25 mcg Route: I.V. Start: 6:00 PM Stop: 6:00 PM Medication: Nitrogylcerin Amount: 200 mcg Route: I.C. Start: 6:16 PM Stop: 6:16 PM Medication: Versed Amount: 1 mg Route: I.V. Start: 6:19 PM Stop: 6:19 PM Medication: Heparin Amount: 3000 units Route: I.V. Start: 6:23 PM Stop: 6:23 PM Medication: Fentanyl Amount: 25 mcg Route: I.V. I, the attending physician, have reviewed and verified all procedure medications. Yes, all medications given per verbal order Report Signatures Finalized by Yazmin Mcginnis MD on 07/22/2024 08:26 PM
--- NOTE | 2024-07-22 15:55 | PC.NURSE ---
PATIENT STEMI ALERT CALLED [phone] PER MAHESH.
[2024-07-22 16:27] LABS: Troponin 5 2HR 38.22 ng/L (0-15)
[2024-07-22 16:30] LABS: Troponin 5 2HR Delta 29.22 ABS# (0-10)
--- NOTE | 2024-07-22 19:09 | P.CONIM_ITS ---
Providers/Reason For Consult 2 Consulting Physician/Specialty*: Interventional coronary Reason for Consult*: ST elevation IN Requesting Physician: Dr. Tena Attending Physician: Yazmin Mcginnis MD Primary Care Provider: Tierra Mccauley APRN History of Present Illness History of Present Illness Ken Davis is a 54 year old male who has a complicated history with a recent intervention to LAD 2 weeks ago at an outside hospital please note that this is as per patient no record available to me, according to the patient course was complicated with intracranial bleed post left heart cath after 24 hours patient has excruciating headache thought to be sinus in origin, patient was discharged home when next day he started having double vision decided to come to the ER, CT scan confirmed intracranial bleed again no record available to me. He was transferred to neurosurgery care at [facility], in few days patient after close observation was discharged home advised to continue holding antiplatelet for next 2 more weeks, this morning patient started having chest pain off and on basis when it became more consistent he decided to come to the ER. Initial EKG was not suggestive of significant ST changes however the second EKG with chest pain was was consistent with anteroinferior ST depression suggestive of ischemia/injury. STEMI pager was activated because of ongoing chest pain and dynamic EKG changes. Patient was taken to the [employer], given history of recent intracranial bleed we kept ACT in between 250 and 300 mostly. He was noted to have 100% occluded mid left main. After somewhat difficulty we were able to cross into LAD, he was noted to have thrombotically occluded left side system including nondominant circumflex and large LAD/diagonal branch. Multiple balloon angioplasty followed by thrombectomy using Pronto and penumbra catheter was performed. IVUS confirmed high clot burden in proximal to distal segment at the same time there appeared to be ostial to proximal LAD small size perhaps underexpanded stent. It was treated with balloon angioplasty, despite of that patient vessel kept on occluding with thrombus burden, use of penumbra/balloon angioplasty followed by drug-eluting stent was performed in ostial to proximal LAD which finally restore the flow, it was treated with 3.5 x 15 mm drug-eluting stent postdilated with 4.0 x 12 mm noncompliant balloon at high inflation. Cardene was given intracoronary along with nitroglycerin, it finally restore the flow. Good angiographic result with LOYD-3 flow was noted in the LAD, we then tried to find circumflex which appeared to be small caliber nondominant vessel. RCA was a large-caliber dominant vessel without significant stenosis. Left ventricular end-diastolic pressure was 32 mmHg ejection fraction was 45%. Since patient has high thrombus burden we decided to treat him with low-dose IV heparin as cannot give 2B3A inhibitor. At this point patient would like to be transferred to [place] where neurosurgery can observe him for any head bleed since he had a bad experience after the previous cath because of intracranial hemorrhage. We have requested bed at [facility] and awaiting response. Currently patient appeared to be stable. Medications/Allergies Home Medications Medication Instructions Recorded Confirmed Last Taken Type lisinopril 10 mg tablet 10 mg PO DAILY 08/18/20 07/22/24 07/22/24 History aspirin 81 mg tablet,delayed 81 mg PO DAILY 07/22/24 07/22/24 Unknown History release bupropion HCl 150 mg 24 hr tablet, 150 mg PO DAILY 07/22/24 07/22/24 07/22/24 History extended release buspirone 5 mg tablet 5 mg PO BID 07/22/24 07/22/24 Unknown History carvedilol 6.25 mg tablet 6.25 mg PO BID 07/22/24 07/22/24 07/22/24 History clopidogrel 75 mg tablet 75 mg PO DAILY 07/22/24 07/22/24 Unknown History famotidine 20 mg tablet 20 mg PO BID 07/22/24 07/22/24 Unknown History furosemide 20 mg tablet 20 mg PO DAILY 07/22/24 07/22/24 07/21/24 History losartan 50 mg tablet 50 mg PO DAILY 07/22/24 07/22/24 07/22/24 History meloxicam 15 mg tablet 15 mg PO DAILY 07/22/24 07/22/24 07/21/24 History rosuvastatin 40 mg tablet 70 mg PO DAILY 07/22/24 07/22/24 07/22/24 History semaglutide 0.25 mg or 0.5 mg (2 See Rx Instructions .Route .COMPLEX 07/22/24 07/22/24 Unknown History mg/1.5 mL) subcutaneous pen injector sertraline 50 mg tablet 50 mg PO DAILY 07/22/24 07/22/24 Unknown History trazodone 50 mg tablet 50 mg PO BEDTIME PRN Insomnia 07/22/24 07/22/24 Unknown History Allergies Allergy/AdvReac Type Severity Reaction Status Date / Time No Known Allergies Allergy Verified 09/08/22 16:48 PFSH Acute 2 PFSH: Medical History History of blood clots Essential hypertension Family History Denies family history of Anesthesia complication Bleeding disorder Social History Smoking and tobacco/nicotine status: never used tobacco/nicotine Alcohol intake: never Vitals/I&O/Wt Last Vital Signs Temp 97.6 F 07/22/24 13:58 Pulse 68 07/22/24 16:17 Resp 14 07/22/24 16:02 BP 128/75 07/22/24 16:17 Pulse Ox 95 07/22/24 16:17 O2 Del Method Room Air 07/22/24 16:02 Physical Exam 2 Const: OTHER: GENERAL: Patient is alert, awake and oriented x3. HEART: Regular S1 and S2. No murmur, rub or gallop. LUNGS: Clear to auscultate bilaterally. CENTRAL NERVOUS SYSTEM: Grossly nonfocal. EXTREMITIES: Lower extremities with out edema bilaterally. Data 07/22/24 12:15 07/22/24 14:05 A&P Assessment and plan (1) ST elevation [place] (STEMI): Given patient history of recent intracranial hemorrhage post PCI at an outside hospital for which he was taken off dual antiplatelet therapy we we will continue to monitor him closely at this point I will continue Plavix and low- dose heparin because of high clot burden we will avoid 2b3A inhibitor. Continue to monitor in the ICU. Will ask for echocardiogram. Add beta-rosana continue aspirin statin and Plavix Qualifiers: Involved coronary artery: LAD coronary artery Qualified Code(s): I21.02 - ST elevation (STEMI) myocardial infarction involving left anterior descending coronary artery (2) History of intracranial hemorrhage: Continue to observe currently patient does not have any focal neurological signs and symptoms are headache. Will keep systolic blood pressure less than 130/80. Patient and family would like to be transferred to the place where neurosurgery is available, we have extended request to [facility] awaiting bed for possible transfer where he will be transferred to cardiac service with consultation or vigilant watch by neurosurgery for any intracranial hemorrhage or complication (3) LV dysfunction: Patient has moderately depressed left ventricular ejection fraction, left ventricle ejection fraction was 45%. There appeared to be elevated left ventricular diastolic pressure may will use Lasix as needed. Coding Level of Care Code Acute Code for g Fwd Diagnoses ST elevation myocardial infarction involving left anterior descending (LAD) coronary artery I21.02 Involved coronary artery: LAD coronary artery History of intracranial hemorrhage Z86.79 LV dysfunction I51.9
[2024-07-22] MEDS: HYDROcodone-acetaminophen 5-325 mg Tablet 1 TAB PO (20:01)
[2024-07-22 20:33] LABS: Troponin 5 6HR 2597 ng/L (0-15); Troponin 5 6HR Delta 2588 ng/L (0-12)
[2024-07-22] MEDS: heparin 5,000 unit/mL INJ 1 mL IVP (20:40)
[2024-07-22] MEDS: heparin drip 25,000 UNIT/500 ML PREMIX 41 UNIT IV (20:42)
[2024-07-22 21:14] LABS: Glucose Point of Care 117 mg/dL (70-110)
--- NOTE | 2024-07-22 21:40 | PC.NURSE ---
Contacted [facility] Transfer center per Dr. Mcrae to inform [facility] that patient is out of [employer] and to proceed with transfer process to [facility].
--- NOTE | 2024-07-22 21:41 | PM.HP ---
Providers/Chief Complaint Admitting Physician: Yazmin Mcginnis MD Primary Care Provider: Tierra Mccauley APRN Chief Complaint: CP History of Present Illness Ken Davis is a 54 year old male who recently underwent coronary angiogram 2 weeks ago at [facility] with angioplasty, 2 stents were placed, followed by intracranial bleed when patient started experiencing headache, blurry vision and dizziness, however he was transferred to [facility] Dr. Garcia was his neurologist where he was observed, patient is stating that his anticoagulating agents were reversed, he was monitored with multiple CT scans and had MRI, he was discharged home with instructions to hold his dual antiplatelet therapy came in for worsening of chest pain, STEMI was called, patient went for angiogram, multiple balloon angioplasties were done to keep his LAD patent, in-stent thrombosis was dealt with balloon angioplasty and drug-eluting stent, he has been put on dual antiplatelet therapy. Please refer to cardiac cath report for further details. At the time of my evaluation patient is chest pain-free hemodynamically stable on room air. Awaiting bed from [facility]. Patient is stating that he thinks he was given multiple doses of antiplatelets and anticoagulating agent and he was hypertensive after angiogram his blood pressure was running 180s to 190s that probably contributed to intracranial hemorrhage. At the time of my evaluation he is chest pain-free hemodynamically stable resting well, doing well on room air, I have requested ICU nurse to put him on nasal cannula he seems to be getting hypoxic during systole, TR band in place no active bleed Left patient's details to [facility] transfer line Review of Systems Const: Denies: fever(s) Eyes: Denies: change in vision ENMT: Denies: throat pain Card: Reports: chest pain Resp: Denies: dyspnea GI: Denies: abdominal pain Medications/Allergies Home Medications Medication Instructions Recorded Confirmed Last Taken Type lisinopril 10 mg tablet 10 mg PO DAILY 08/18/20 07/22/24 07/22/24 History aspirin 81 mg tablet,delayed 81 mg PO DAILY 07/22/24 07/22/24 Unknown History release bupropion HCl 150 mg 24 hr tablet, 150 mg PO DAILY 07/22/24 07/22/24 07/22/24 History extended release buspirone 5 mg tablet 5 mg PO BID 07/22/24 07/22/24 Unknown History carvedilol 6.25 mg tablet 6.25 mg PO BID 07/22/24 07/22/24 07/22/24 History clopidogrel 75 mg tablet 75 mg PO DAILY 07/22/24 07/22/24 Unknown History famotidine 20 mg tablet 20 mg PO BID 07/22/24 07/22/24 Unknown History furosemide 20 mg tablet 20 mg PO DAILY 07/22/24 07/22/24 07/21/24 History losartan 50 mg tablet 50 mg PO DAILY 07/22/24 07/22/24 07/22/24 History meloxicam 15 mg tablet 15 mg PO DAILY 07/22/24 07/22/24 07/21/24 History rosuvastatin 40 mg tablet 70 mg PO DAILY 07/22/24 07/22/24 07/22/24 History semaglutide 0.25 mg or 0.5 mg (2 See Rx Instructions .Route .COMPLEX 07/22/24 07/22/24 Unknown History mg/1.5 mL) subcutaneous pen injector sertraline 50 mg tablet 50 mg PO DAILY 07/22/24 07/22/24 Unknown History trazodone 50 mg tablet 50 mg PO BEDTIME PRN Insomnia 07/22/24 07/22/24 Unknown History Allergies Allergy/AdvReac Type Severity Reaction Status Date / Time No Known Allergies Allergy Verified 09/08/22 16:48 PFSH Acute PFSH: Medical History History of blood clots Essential hypertension Family History Denies family history of Anesthesia complication Bleeding disorder Social History Smoking and tobacco/nicotine status: never used tobacco/nicotine Alcohol intake: never Vitals/I&O/Wt Last Vital Signs Temp 97.9 F 07/22/24 19:00 Pulse 92 07/22/24 21:00 Resp 14 07/22/24 21:00 BP 115/76 07/22/24 21:00 Pulse Ox 93 07/22/24 21:00 O2 Del Method Room Air 07/22/24 20:00 Weight last 48 hrs Weight 144.696 kg Physical Exam Narrative: Awake and alert Morbidly beast GCS 15 Chest pain-free Nonfocal neuroexam S1, S2 Hemodynamically stable Currently on room air TR band in place no active bleeding Data 07/22/24 12:15 07/22/24 14:05 A&P Assessment and plan (1) ST elevation [place] (STEMI): Qualifiers: Involved coronary artery: LAD coronary artery Qualified Code(s): I21.02 - ST elevation (STEMI) myocardial infarction involving left anterior descending coronary artery (2) BMI 45.0-49.9, adult: (3) History of intracranial hemorrhage: Plan STEMI status post angioplasty to LAD Recent intracranial hemorrhage Patient is hemodynamically stable No active sign of intracranial bleed Patient is doing well on room air will put him on 2 L nasal cannula for sleep apnea Continue aspirin, Plavix, atorvastatin, along opioids and bowel regimen Start consistent carb diet along sliding scale Patient is full code Awaiting response from [facility] for neurosurgery evaluation Patient is not hypertensive however I will resume his losartan Patient was monitored in ICU, I evaluated him after his angioplasty today DVT prophylaxis: SCDs Insulin sliding scale for type 2 diabetes consistent carb diet Attestations Medical Necessity Statement*: Awaiting transfer to [facility] for neurosurgery valuation Diagnoses ST elevation myocardial infarction involving left anterior descending (LAD) coronary artery I21.02 Involved coronary artery: LAD coronary artery BMI 45.0-49.9, adult Z68.42 History of intracranial hemorrhage Z86.79
--- NOTE | 2024-07-22 21:50 | PC.NURSE ---
Received call from [facility] with [facility] [place] who advised they could not locate this transfer request. Information given to transfer center pertaining to this transfer and patient current status. [facility] with transfer center will call back with room number or with further questions if needed. Contacted Dr. Mcrae after call with [facility] to update him on status of transfer.
--- NOTE | 2024-07-22 22:15 | PC.NURSE ---
7000 units initial heparin bolus given on the MAR under subsequent bolus rather than initial heparin bolus dose.
--- NOTE | 2024-07-22 22:38 | PC.NURSE ---
Dr. Mcrae at bedside with patient discussing transfer status and previous medical history. Orders received for nasal canula r/t sleep apnea, and order for a GI cocktail for patient complaint of indigestion and belching.
--- NOTE | 2024-07-22 23:21 | PC.NURSE ---
Patient signed consent for records request for [facility] in [place], [place].
[2024-07-23] VITALS (25 sets, daily range): BP systolic 97–127; BP diastolic 63–84; PULSE 70–102; RESP 10–22; TEMP 36.8; O2SAT 94–98
[2024-07-23] MEDS: HYDROcodone-acetaminophen 5-325 mg Tablet 1 TAB PO (02:52)
[2024-07-23 04:19] LABS: Basophils % 0.1 %; Eosinophils % 0.1 %; Hematocrit 44.2 % (37-53); Lymphocytes # 1.7 10^3/uL (0.8-4.8); Mean Corpuscular HGB Conc 33.3 g/dL (30-55); Mean Corpuscular Hemoglobin 30.1 pg (27-33); Mean Corpuscular Volume 90.4 fl (82-101); Mean Platelet Volume 10.4 fL (7.4-10.4); Monocytes # 1.3 10^3/uL (0.2-0.9); Monocytes % 8.3 %; Neutrophils # 12.14 10^3/uL (1.8-7.7); Nucleated Red Blood Cells % 0 %; Platelet Count 237 10^3/cmm (157-399); Red Blood Count 4.89 10^6/uL (3.85-5.65); Red Cell Distribution Width 13.3 % (12.1-15.1); White Blood Count 15.18 10^3/uL (3.29-11.43)
[2024-07-23 04:47] LABS: Anion Gap 16.9 (5-19); Blood Urea Nitrogen 18 mg/dL (6-20); Carbon Dioxide 26 mmol/L (22-29); Chloride 100 mmol/L (98-107); Creatinine Clr Calc Pharmacy 157.4503; Glomerular Filtration Rate 101.5 mL/min (90-130); Glucose 100 mg/dL (65-115); Osmolality Calculated 290 mOsm/kg (285-295); Potassium 3.9 mmol/L (3.5-5.1); Sodium 139 mmol/L (136-145)
--- NOTE | 2024-07-23 04:52 | PC.NURSE ---
Report called to ROD Carias with [facility] Neuro Trauma Unit. Bed assignment was #[id number].
[2024-07-23 04:53] LABS: Magnesium 2.1 mg/dL (1.7-2.3)
[2024-07-23 04:58] LABS: Partial Thromboplastin Time 130.9 SECONDS (23.9-36.7)
--- NOTE | 2024-07-23 06:00 | USCV_ITS ---
Susan Ken Age: 54 Gender: M : 1970 Exam Date: 07/23/2024 07:17 Ordering Phys: Yazmin Mcginnis MD ([email or web address]) Technologist: Exam Location: [facility] [place] Indication: ef perfusion thearapy BP: 113 / 77 HR: 79 Rhythm: Sinus Technical Quality: Adequate MEASUREMENTS (Male / Female) Normal Values 2D ECHO LV Diastolic Diameter PLAX 5.4 cm 4.2 - 5.9 / 3.9 - 5.3 cm IVS Diastolic Thickness 1.4 cm 0.6 - 1.0 / 0.6 - 0.9 cm IVS Systolic Thickness 1.8 cm LVPW Diastolic Thickness 1.6 cm 0.6 - 1.0 / 0.6 - 0.9 cm LVPW Systolic Thickness 1.8 cm LVOT Diameter 2.1 cm LV Ejection Fraction 2D Teich 58.4 % LV Ejection Fraction MOD 4C 64.6 % LV Ejection Fraction MOD 2C 61.0 % LV Ejection Fraction 2C AL 61.5 % LA Diameter 3.8 cm RA Systolic Volume 4C AL 60.4 ml RA Systolic Volume 4C MOD 55.6 ml Aorta at Sinotubular Diameter 3.6 cm M-MODE LA Ao Ratio MM 1.3 AV Cusp Separation MM 2.4 cm DOPPLER AV Peak Velocity 154.0 cm/s LVOT Peak Velocity 82.0 cm/s AV Area Cont Eq vti 1.6 cm squared AV Area Cont Eq pk 1.9 cm squared MV Peak Velocity 97.0 cm/s MV Area PHT 4.9 cm squared Mitral E to A Ratio 0.8 TV Peak Velocity 164.0 cm/s TR Peak Velocity 171.0 cm/s TR Peak Gradient 11.7 mmHg TV Peak E Velocity 71.0 cm/s PV Peak Velocity 98.0 cm/s FINDINGS Left Ventricle Left ventricular is normal in size. LV systolic function is mildly reduced with EF of 45 to 50%. Mild to moderate hypokinesis of anterior, anteroseptal and anterolateral tong. Grade 1 diastolic dysfunction. Right Ventricle Normal in size and function Right Atrium Normal in size Left Atrium Normal in size Mitral Valve Structurally normal mitral valve. Mild mitral regurgitation. Aortic Valve Structurally normal aortic valve. No significant stenosis or regurgitation. Tricuspid Valve Mild tricuspid regurgitation. Pulmonary artery systolic pressure is normal. Pulmonic Valve Not well visualized Pericardium Normal Aorta Normal in size IVC Appears to be normal CONCLUSIONS LV systolic function is mildly reduced with EF 45 to 50%. Above-mentioned regional wall motion abnormalities are seen. Grade 1 diastolic dysfunction. Mild mitral regurgitation. Mild tricuspid regurgitation. No comparison studies are available. Uli Kim MD (Electronically Signed) Final Date: 23 July 2024 08:24 S
--- NOTE | 2024-07-23 06:44 | PM.TDS ---
Transfer Summary Providers Date of Admission: 07/22/24 17:38 Date of Discharge/Transfer: 07/23/24 Attending Provider at Admission: Yazmin Mcginnis MD Attending Provider at Transfer: Yazmin Mcrae MD Primary Care Provider: Tierra Mccauley APRN Transfer Plans: Anticipated date of transfer: 07/23/24. Diagnoses at Discharge Discharge Diagnosis (1) ST elevation IA (STEMI): Status: Acute Qualifiers: Involved coronary artery: LAD coronary artery Qualified Code(s): I21.02 - ST elevation (STEMI) myocardial infarction involving left anterior descending coronary artery (2) BMI 45.0-49.9, adult: Status: Acute (3) History of intracranial hemorrhage: Status: Acute Reason for Visit Reason for Visit CP Hospital Course Hospital Course Ken Davis is a 54 year old male who recently underwent coronary angiogram 2 weeks ago at [facility] with angioplasty, 2 stents were placed, followed by intracranial bleed when patient started experiencing headache, blurry vision and dizziness, however he was transferred to [facility] Dr. Garcia was his neurologist where he was observed, patient is stating that his anticoagulating agents were reversed, he was monitored with multiple CT scans and had MRI, he was discharged home with instructions to hold his dual antiplatelet therapy came in for worsening of chest pain, STEMI was called, patient went for angiogram, multiple balloon angioplasties were done to keep his LAD patent, in-stent thrombosis was dealt with balloon angioplasty and drug-eluting stent, he has been put on dual antiplatelet therapy. Please refer to cardiac cath report for further details. At the time of my evaluation patient is chest pain-free hemodynamically stable on room air. Awaiting bed from [facility]. Patient is stating that he thinks he was given multiple doses of antiplatelets and anticoagulating agent and he was hypertensive after angiogram his blood pressure was running 180s to 190s that probably contributed to intracranial hemorrhage. At the time of my evaluation he is chest pain-free hemodynamically stable resting well, doing well on room air, I have requested ICU nurse to put him on nasal cannula he seems to be getting hypoxic during systole, TR band in place no active bleed [facility]. Physical Exam Narrative: Awake and alert Chest pain free GCS 15 Hemodynamically stable TS Data Studies Completed and Pending Pending at discharge Category Date Time Status PTT [Partial Thromboplastin Time] Timed Lab 07/23/24 11:00 Ordered Platelet Count Q2D Lab 07/24/24 04:00 Ordered Platelet Count Q2D Lab 07/26/24 04:00 Ordered US echo complete [CV. echo complete* [id number]] Routine Ultrasound 07/23/24 06:00 Ordered Completed Studies During Hospitalization Category Date Time Status [employer] request for service Stat Exams 07/22/24 15:49 Completed XR chest 1V portable [id number] Stat Exams 07/22/24 13:42 Completed Laboratory Last Values WBC 15.18 10^3/uL (3.29-11.43) H 07/23/24 02:54 RBC 4.89 10^6/uL (3.85-5.65) 07/23/24 02:54 Hgb 14.70 g/dL (11.27-16.99) 07/23/24 02:54 Hct 44.2 % (37-53) 07/23/24 02:54 MCV 90.4 fl (82-101) 07/23/24 02:54 MCH 30.1 pg (27-33) 07/23/24 02:54 MCHC 33.3 g/dL (30-55) 07/23/24 02:54 RDW 13.3 % (12.1-15.1) 07/23/24 02:54 Plt Count 237 10^3/cmm (157-399) 07/23/24 02:54 MPV 10.4 fL (7.4-10.4) 07/23/24 02:54 Neut % (Auto) 80.0 % 07/23/24 02:54 Lymph % (Auto) 11.0 % 07/23/24 02:54 Lipscomb % (Auto) 8.3 % 07/23/24 02:54 Eos % (Auto) 0.1 % 07/23/24 02:54 Baso % (Auto) 0.1 % 07/23/24 02:54 Neut # (Auto) 12.14 10^3/uL (1.8-7.7) H 07/23/24 02:54 Lymph # (Auto) 1.7 10^3/uL (0.8-4.8) 07/23/24 02:54 Lipscomb # (Auto) 1.3 10^3/uL (0.2-0.9) H 07/23/24 02:54 Eos # (Auto) 0.0 10^3/uL (0.0-0.8) 07/23/24 02:54 Baso # (Auto) 0.0 10^3/uL (0.0-0.1) 07/23/24 02:54 Nucleated RBC % (auto) 0 % 07/23/24 02:54 Nucleated RBCs # 0.0 /100WBC 07/23/24 02:54 PT 12.90 SECONDS (12.1-14.9) 07/22/24 14:05 INR 0.95 (0.8-1.2) 07/22/24 14:05 APTT 130.9 SECONDS (23.9-36.7) H 07/23/24 02:54 Sodium 139 mmol/L (136-145) 07/23/24 02:54 Potassium 3.9 mmol/L (3.5-5.1) 07/23/24 02:54 Chloride 100 mmol/L (98-107) 07/23/24 02:54 Carbon Dioxide 26 mmol/L (22-29) 07/23/24 02:54 Anion Gap 16.9 (5-19) 07/23/24 02:54 BUN 18 mg/dL (6-20) 07/23/24 02:54 Creatinine 0.8 mg/dL (0.7-1.2) 07/23/24 02:54 GFR Calculation 101.5 mL/min (90-130) 07/23/24 02:54 Glucose 100 mg/dL (65-115) 07/23/24 02:54 POC Glucose 117 mg/dL (70-110) H 07/22/24 20:59 Calculated Osmolality 290 mOsm/kg (285-295) 07/23/24 02:54 Calcium 9.0 mg/dL (8.5-10.5) 07/23/24 02:54 Magnesium 2.1 mg/dL (1.7-2.3) 07/23/24 02:54 Total Bilirubin 0.5 mg/dL (0.15-1.2) 07/22/24 14:05 AST 14 U/L (0-40) 07/22/24 14:05 ALT 34 U/L (0-41) 07/22/24 14:05 Alkaline Phosphatase 102 U/L (40-130) 07/22/24 14:05 Troponin T Baseline 9 ng/L (0-15) 07/22/24 14:05 Troponin T 120 Minute 38.22 ng/L (0-15) H 07/22/24 15:52 Delta Troponin T 29.22 ABS# (0-10) H* 07/22/24 15:52 Troponin T Hi Sens 6Hr 2597 ng/L (0-15) H 07/22/24 20:09 Troponin T Hi Sens 6Hr Delta 2588 ng/L (0-12) H* 07/22/24 20:09 Total Protein 7.1 g/dL (6.6-8.7) 07/22/24 14:05 Albumin 4.7 g/dL (3.5-5.2) 07/22/24 14:05 Globulin 2.4 g/dL (1.3-4.6) 07/22/24 14:05 Lipase 27 U/L (13-60) 07/22/24 14:05 Radiology Impressions Chest X-Ray 07/22/24 13:42 IMPRESSION: No acute findings. Recent Clincial Data Last Vital Signs Temp 98.2 F 07/23/24 04:00 Pulse 71 07/23/24 06:00 Resp 18 07/23/24 06:00 BP 99/64 07/23/24 06:00 Pulse Ox 97 07/23/24 06:00 O2 Del Method Nasal Cannula 07/23/24 06:00 O2 Flow Rate 2 07/23/24 06:00 Vital Signs Temp Pulse Resp BP Pulse Ox O2 Del Method O2 Flow Rate 07/23/24 06:00 71 18 99/64 97 Nasal Cannula 2 07/23/24 06:00 72 07/23/24 05:45 70 18 102/65 96 07/23/24 05:30 71 20 H 97/63 96 07/23/24 05:15 73 15 106/66 97 07/23/24 05:00 76 17 106/69 95 07/23/24 04:45 76 16 106/69 95 07/23/24 04:30 81 15 106/70 96 07/23/24 04:15 82 14 121/84 96 07/23/24 04:00 98.2 F 83 20 H 121/84 97 Nasal Cannula 2 07/23/24 03:45 81 18 116/73 94 07/23/24 03:30 79 17 121/77 95 07/23/24 03:15 76 10 L 120/84 97 07/23/24 03:00 88 15 120/81 97 07/23/24 02:45 86 14 116/80 98 07/23/24 02:30 82 15 115/81 97 07/23/24 02:15 84 14 127/83 98 07/23/24 02:00 88 17 121/78 96 07/23/24 01:45 77 16 111/73 96 07/23/24 01:30 80 19 H 107/72 95 07/23/24 01:15 83 19 H 105/70 94 07/23/24 01:00 85 18 105/70 95 07/23/24 00:45 88 19 H 107/69 94 07/23/24 00:30 83 17 107/69 95 07/23/24 00:15 102 H 22 H 110/74 07/23/24 00:00 84 18 105/72 95 07/22/24 23:45 86 9 L 107/70 96 07/22/24 23:30 89 12 104/78 97 07/22/24 23:24 86 17 95 Nasal Cannula 2 07/22/24 23:15 84 11 L 112/78 97 07/22/24 23:00 84 12 112/75 97 07/22/24 22:45 81 12 115/79 96 07/22/24 22:30 92 17 104/71 95 07/22/24 22:15 93 15 109/80 91 07/22/24 22:00 94 16 113/73 94 07/22/24 22:00 78 07/22/24 21:45 86 13 108/72 96 07/22/24 21:30 87 14 108/72 95 07/22/24 21:15 89 15 108/76 94 07/22/24 21:00 92 14 115/76 93 07/22/24 20:45 89 14 108/75 07/22/24 20:30 86 14 119/77 07/22/24 20:15 88 11 L 113/74 07/22/24 20:00 102 H 135/90 Room Air 07/22/24 19:45 81 21 H 132/92 92 07/22/24 19:30 90 28 H 128/94 94 07/22/24 19:15 81 16 132/93 95 07/22/24 19:01 84 07/22/24 19:01 Room Air 07/22/24 19:00 97.9 F 83 16 132/104 96 Room Air Intake & Output/Weight 07/20/24 07/21/24 07/22/24 07/23/24 06:59 06:59 06:59 06:59 Intake Total 339.617 / 339.617 Output Total 550 / 550 Balance -210.383 / -210.383 Weight 144.696 kg Vitals Last Vital Signs Temp 98.2 F 07/23/24 04:00 Pulse 71 07/23/24 06:00 Resp 18 07/23/24 06:00 BP 99/64 07/23/24 06:00 Pulse Ox 97 07/23/24 06:00 O2 Del Method Nasal Cannula 07/23/24 06:00 O2 Flow Rate 2 07/23/24 06:00 TS Medications Medications Acetaminophen (Acetaminophen 325 Mg Tablet) 650 mg PO Q6H PRN PRN Reason: MILD PAIN Acetaminophen (Acetaminophen 500 Mg Tablet) 500 mg PO Q4H PRN PRN Reason: fever Hydrocodone Bitart/Acetaminophen (Hydrocodone-Acetaminophen 5-325 Mg Tablet) 1 tab PO Q4H PRN PRN Reason: MODERATE TO SEVERE PAIN Last Admin: 07/23/24 02:52 Dose: 1 tab Al Hydrox/Mg Hydrox/Simethicone (Xzlx-Tif-Hfeabczoq-Khang 30 Ml Udc) 30 ml PO Q15M PRN PRN Reason: INDIGESTION Albuterol/Ipratropium (Ipratropium-Albuterol 3 Ml Neb) 3 ml INHALATION Q6H PRN PRN Reason: SHORTNESS OF BREATH Aspirin (Aspirin 81 Mg Ec Tablet) 81 mg PO DAILY EVELYN Atorvastatin Calcium (Atorvastatin 40 Mg Tablet) 80 mg PO DAILY EVELYN Atropine Sulfate (Atropine 1 Mg/Ml Sdv 1 Ml) 0.5 mg IVP PRN PRN PRN Reason: Symptomatic bradycardia Clopidogrel Bisulfate (Clopidogrel 75 Mg Tablet) 75 mg PO DAILY EVELYN Fentanyl (Fentanyl 50 Mcg/Ml Inj 2ml) 50 mcg IVP PRN PRN PRN Reason: Prior to sheath removal Glucagon (Glucagon 1 Mg/Ml Kit 1 Ml) 1 mg IM ONCE PRN; Protocol PRN Reason: Adult Acute Hypoglycemia Nursing Prot. Heparin Sodium (Porcine) (Heparin 5,000 Unit/Ml Inj 1 Ml) 0 unit IVP PRN PRN; Protocol PRN Reason: Heparin Weight Based Protocol -Subsequent Bolus Last Admin: 07/22/24 20:40 Dose: 7,000 unit Heparin Sodium/Sodium Chloride (Heparin Drip) 25,000 unit in 500 mls @ 0 mls/hr IV CONT EVELYN; Protocol Last Titration: 07/23/24 04:59 Dose: 11.06 unit/kg/hr, 32 mls/hr Dextrose (D5w) 500 mls @ 0 mls/hr IV ONCE PRN; Protocol PRN Reason: Adult Acute Hypoglycemia Prot Dextrose (D10w) 125 mls @ 750 mls/hr IV PRN PRN; Protocol PRN Reason: Adult Acute Hypoglycemia Nursing Protocol Dextrose (D10w) 250 mls @ 1,000 mls/hr IV PRN PRN; Protocol PRN Reason: Adult Acute Hypoglycemia Nursing Protocol Insulin Human Lispro (Insulin Lispro 100 Unit/1 Ml) 0 unit SUBCUT TIDWM EVELYN; Protocol Losartan Potassium (Losartan 50 Mg Tablet) 50 mg PO DAILY EVELYN Magnesium Hydroxide (Magnesium Hydroxide 30 Ml Udc) 30 ml PO DAILY PRN PRN Reason: CONSTIPATION Morphine Sulfate (Morphine Ir 15 Mg Tablet) 15 mg PO Q6H PRN PRN Reason: MODERATE PAIN Naloxone HCl (Naloxone 0.4 Mg/Ml Sdv) 0.1 mg IVP Q2M PRN PRN Reason: RESPIRATORY RATE < 8/MIN Nitroglycerin (Nitroglycerin 0.4 Mg Sublingual Tablet) 0.4 mg SUBLINGUAL Q5M PRN PRN Reason: CHEST PAIN Ondansetron HCl (Ondansetron 2 Mg/Ml Sdv 2 Ml) 4 mg IVP Q6H PRN PRN Reason: NAUSEA AND VOMITING Pantoprazole Sodium (Pantoprazole 40 Mg Sdv) 40 mg IVP BID EVELYN Temazepam (Temazepam 15 Mg Capsule) 15 mg PO BEDTIME PRN PRN Reason: INSOMNIA Discontinued Medications Amiodarone HCl (Amiodarone 50 Mg/Ml Sdv 3 Ml) Confirm Administered Dose 150 mg .ROUTE .STK-MED ONE Stop: 07/22/24 17:15 Aspirin (Aspirin 81 Mg Chew Tablet) 324 mg PO NOW ONE Stop: 07/22/24 15:36 Last Admin: 07/22/24 15:43 Dose: 324 mg Atropine Sulfate (Atropine 0.1 Mg/Ml Syr 10 Ml) Confirm Administered Dose 1 mg .ROUTE .STK-MED ONE Stop: 07/22/24 16:51 Clopidogrel Bisulfate (Clopidogrel 300 Mg Tablet) 600 mg PO ONCE ONE Stop: 07/22/24 15:44 Last Admin: 07/22/24 15:47 Dose: 600 mg Lidocaine HCl 15 ml/ Al Hydrox /Mg Hydrox/Simethicone 30 ml/Sucralfate 1 gm 0 ml PO ONCE ONE Stop: 07/22/24 13:55 Last Admin: 07/22/24 14:19 Dose: 1 suspension Lidocaine HCl 15 ml/ Al Hydrox /Mg Hydrox/Simethicone 30 ml/Sucralfate 1 gm 0 ml PO ONCE ONE Stop: 07/22/24 22:38 Last Admin: 07/22/24 23:36 Dose: 55 suspension Fentanyl (Fentanyl 50 Mcg/Ml Inj 2ml) Confirm Administered Dose 100 mcg .ROUTE .STK-MED ONE Stop: 07/22/24 16:00 Fentanyl (Fentanyl 50 Mcg/Ml Inj 2ml) Confirm Administered Dose 100 mcg .ROUTE .STK-MED ONE Stop: 07/22/24 17:44 Heparin Sodium (Porcine) (Heparin 5,000 Unit/Ml Inj 1 Ml) 4,000 unit IVP ONCE ONE Stop: 07/22/24 15:44 Last Admin: 07/22/24 15:48 Dose: 4,000 unit Heparin Sodium (Porcine) (Heparin 5,000 Unit/Ml Inj 1 Ml) Confirm Administered Dose 5,000 unit .ROUTE .STK-MED ONE Stop: 07/22/24 16:00 Heparin Sodium (Porcine) (Heparin 5,000 Unit/Ml Inj 1 Ml) Confirm Administered Dose 5,000 unit .ROUTE .STK-MED ONE Stop: 07/22/24 16:39 Heparin Sodium (Porcine) (Heparin 5,000 Unit/Ml Inj 1 Ml) Confirm Administered Dose 5,000 unit .ROUTE .STK-MED ONE Stop: 07/22/24 17:37 Heparin Sodium (Porcine) (Heparin 5,000 Unit/Ml Inj 1 Ml) Confirm Administered Dose 5,000 unit .ROUTE .STK-MED ONE Stop: 07/22/24 18:19 Heparin Sodium (Porcine) (Heparin 5,000 Unit/Ml Inj 1 Ml) 0 unit IVP ONCE ONE; Protocol Stop: 07/22/24 20:10 Last Admin: 07/22/24 22:14 Dose: Not Given Hydromorphone HCl (Hydromorphone 1 Mg/Ml Inj 1 Ml) 0.5 mg IVP ONCE ONE Stop: 07/22/24 15:36 Last Admin: 07/22/24 15:43 Dose: 0.5 mg Lidocaine HCl (Xylocaine) Confirm Administered Dose 20 mls @ as directed .ROUTE .[facility]-MED ONE Stop: 07/22/24 16:00 Sodium Chloride (Sodium Chloride 0.9% (100 Ml)) Confirm Administered Dose 100 mls @ as directed .ROUTE .[facility]-MED ONE Stop: 07/22/24 17:16 Sodium Chloride (Sodium Chloride 0.9%) Confirm Administered Dose 250 mls @ as directed .ROUTE .[facility]-MED ONE Stop: 07/22/24 17:24 Sodium Chloride (Sodium Chloride 0.9% (100 Ml)) Confirm Administered Dose 100 mls @ as directed .ROUTE .[facility]-MED ONE Stop: 07/22/24 17:41 Heparin Sodium/Sodium Chloride (Heparin Drip) Confirm Administered Dose 25,000 unit in 500 mls @ as directed .ROUTE .[facility]-MED ONE Stop: 07/22/24 18:29 Midazolam HCl (Midazolam 1 Mg/Ml Inj 2 Ml) Confirm Administered Dose 2 mg .ROUTE .ST-MED ONE Stop: 07/22/24 16:00 Midazolam HCl (Midazolam 1 Mg/Ml Inj 2 Ml) Confirm Administered Dose 2 mg .ROUTE .ST-MED ONE Stop: 07/22/24 16:45 Midazolam HCl (Midazolam 1 Mg/Ml Inj 2 Ml) Confirm Administered Dose 2 mg .ROUTE .[facility]-MED ONE Stop: 07/22/24 17:05 Nicardipine HCl (Nicardipine 25 Mg/10 Ml Sdv 10 Ml) Confirm Administered Dose 25 mg .ROUTE .ST-MED ONE Stop: 07/22/24 17:40 Nitroglycerin (Nitroglycerin 5 Mg/Ml Sdv 10 Ml) Confirm Administered Dose 50 mg .ROUTE .[facility]-MED ONE Stop: 07/22/24 16:00 Ondansetron HCl (Ondansetron 2 Mg/Ml Sdv 2 Ml) 4 mg IVP ONCE ONE Stop: 07/22/24 15:08 Last Admin: 07/22/24 15:22 Dose: 4 mg Phenylephrine HCl (Phenylephrine 10 Mg/Ml Sdv 1 Ml) Confirm Administered Dose 10 mg .ROUTE .STK-MED ONE Stop: 07/22/24 17:24 Allergies No Known Allergies Allergy (Verified 09/08/22 16:48) Home Medications lisinopril 10 mg tablet 10 mg PO DAILY 08/18/20 [History Confirmed 07/22/24] aspirin 81 mg tablet,delayed release 81 mg PO DAILY 07/22/24 [History Confirmed 07/22/24] bupropion HCl 150 mg 24 hr tablet, extended release 150 mg PO DAILY 07/22/24 [History Confirmed 07/22/24] buspirone 5 mg tablet 5 mg PO BID 07/22/24 [History Confirmed 07/22/24] carvedilol 6.25 mg tablet 6.25 mg PO BID 07/22/24 [History Confirmed 07/22/24] clopidogrel 75 mg tablet 75 mg PO DAILY 07/22/24 [History Confirmed 07/22/24] famotidine 20 mg tablet 20 mg PO BID 07/22/24 [History Confirmed 07/22/24] furosemide 20 mg tablet 20 mg PO DAILY 07/22/24 [History Confirmed 07/22/24] losartan 50 mg tablet 50 mg PO DAILY 07/22/24 [History Confirmed 07/22/24] meloxicam 15 mg tablet 15 mg PO DAILY 07/22/24 [History Confirmed 07/22/24] rosuvastatin 40 mg tablet 70 mg PO DAILY 07/22/24 [History Confirmed 07/22/24] semaglutide 0.25 mg or 0.5 mg (2 mg/1.5 mL) subcutaneous pen injector See Rx Instructions .Route .COMPLEX 07/22/24 [History Confirmed 07/22/24] sertraline 50 mg tablet 50 mg PO DAILY 07/22/24 [History Confirmed 07/22/24] trazodone 50 mg tablet 50 mg PO BEDTIME PRN Insomnia 07/22/24 [History Confirmed 07/22/24] Discharge Plan Discharge Patient Disposition: Xfer Other Condition: Stable Prescriptions: No Action lisinopril 10 mg tablet 10 mg PO DAILY losartan 50 mg tablet 50 mg PO DAILY buspirone 5 mg tablet 5 mg PO BID carvedilol 6.25 mg tablet 6.25 mg PO BID trazodone 50 mg tablet 50 mg PO BEDTIME PRN (Reason: Insomnia) meloxicam 15 mg tablet 15 mg PO DAILY clopidogrel 75 mg tablet 75 mg PO DAILY aspirin 81 mg tablet,delayed release (DR/EC) 81 mg PO DAILY famotidine 20 mg tablet 20 mg PO BID sertraline 50 mg tablet 50 mg PO DAILY rosuvastatin 40 mg tablet 70 mg PO DAILY bupropion HCl 150 mg tablet extended release 24 hr 150 mg PO DAILY furosemide 20 mg tablet 20 mg PO DAILY semaglutide 0.25 mg or 0.5 mg(2 mg/1.5 mL) Pen Injector See Rx Instructions .ROUTE .COMPLEX Rx Instructions: Inject 96 units on syringe by subcutaneous injection every 7 days. Discharge Orders: Transfer Out of Facility (Order); Ordered 07/23/24 Ordered By: Yazmin Mcrae Referrals: Tierra Mccauley APRN [Primary Care Provider] - Transfer Attestations Time Spent in Transfer Care: greater than 30 min Quality Metrics Clinical Quality Measures [ No reported AMI, CVA or VTE this stay] Coding Level of Care Code Acute Code for [facility] Fwd Diagnoses ST elevation myocardial infarction involving left anterior descending (LAD) coronary artery I21.02 Involved coronary artery: LAD coronary artery BMI 45.0-49.9, adult Z68.42 History of intracranial hemorrhage Z86.79
--- NOTE | 2024-07-23 08:05 | PC.NURSE ---
Patient transferred to [facility] at 0800 left via air evac.
== END 2024-07-23 08:00 | disposition short-term general hospital (02) | DRG 321 ==
LOC: ER 16:19 → CCL 16:20 → ICU 17:38
PROVIDERS: Internal Medicine; Admitting Provider Internal Medicine Cardiovascular Disease; Emergency Provider Emergency Medicine; PCP Nurse Practitioner Family; Visit Provider Family Medicine
PROC: 027034Z Dilation of Coronary Artery, One Artery with Drug-eluting Intraluminal Device, Percutaneous Approach (ICD-10-PCS; principal; 2024-07-22 16:00)
DX: I97.190 Other postprocedural cardiac functional disturbances following cardiac surgery (principal); I21.A9 Other myocardial infarction type; T82.867A Thrombosis due to cardiac prosthetic devices, implants and grafts, initial encounter; Z68.41 Body mass index [BMI] 40.0-44.9, adult; Y71.8 Miscellaneous cardiovascular devices associated with adverse incidents, not elsewhere classified; R09.02 Hypoxemia; E66.01 Morbid (severe) obesity due to excess calories; I10 Essential (primary) hypertension
CPT/HCPCS: 36415; 36416; 71045; 80048; 80053; 82962; 83690; 83735; 84484; 85025; 85347; 85610; 85730; 92920; 92973; 92978; 93005; 93306; 93458; 96374; 96375; 96376; 99152; 99153; 99285; C1725; C1753; C1757; C1769; C1874; C1887; C1894; C9600; J0282; J0461; J1171; J1644; J2250; J2371; J2405; J3010; J3490; J7050; Q9967